=== PATIENT | male | born 1995 | race Two or more races ===

== ENCOUNTER 2020-06-20 17:03 | Emergency (ER) | payer MEDICAID, OTHER ==
[~2020-06-20] VITALS: Ht 180.3 cm; Wt 91.1 kg
[2020-06-20 17:36] LABS: MEAN CORPUSCULAR HEMOGLOBIN 30.5 pg (27.5-34.5); MEAN CORPUSCULAR HGB CONC 35.2 g/dL (33.2-36.2); MEAN PLATELET VOLUME 7.6 fL (7.4-10.4); PLATELET COUNT 196 x10^3/uL (130-400); RED BLOOD COUNT 5.02 x10^6/uL (4.38-5.82); RED CELL DISTRIBUTION WIDTH 13.5 % (9.4-14.8)
[2020-06-20 17:45] LABS: ALANINE AMINOTRANSFERASE 43 U/L (12-78); ALBUMIN 4.1 g/dL (3.4-5.0); ANION GAP 4 mmol/L (5-15); CALCIUM 8.8 mg/dL (8.5-10.1); CHLORIDE 109 mmol/L (98-107); CREATININE 0.88 mg/dL (0.7-1.3)
[2020-06-20 17:47] LABS: ALKALINE PHOSPHATASE 53 U/L (45-117); BILIRUBIN,TOTAL 1.1 mg/dL (0.2-1.0); TOTAL PROTEIN 7.6 g/dL (6.4-8.2)
[2020-06-20 17:56] LABS: MD YES
[2020-06-20 18:04] LABS: SEG#(MANUAL) 0.75 x10^3/uL (1.8-6.8); SEGS% (MANUAL) 34 % (42-75)
[2020-06-20 18:05] LABS: <PLATELET ESTIMATE> ADEQUATE; <PLT MORPHOLOGY> NORMAL PLT MORPH; <RBC MORPHOLOGY> NORMAL; EOS#(MANUAL) 0.11 x10^3/uL (0.0-0.4); EOS% (MANUAL) 5 % (1-7); LYMPH#(MANUAL) 0.97 x10^3/uL (1-3.4); LYMPHS% (MANUAL) 44 % (22-44); MONOS#(MANUAL) 0.33 x10^3/uL (0.3-2.7); MONOS% (MANUAL) 15 % (2-9); REACTIVE LYMPHS # (MANUAL) 0.04 x10^3/uL (0-0); REACTIVE LYMPHS % (MANUAL) 2 % (0-0)
--- NOTE | 2020-06-20 18:35 | NUR ---
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
--- NOTE | 2020-06-20 19:10 | NUR ---
report from Tonia BARRETT
[2020-06-20 19:53] VITALS: BP 129/72
--- NOTE | 2020-06-20 19:56 | NUR ---
PT REC'VD DISCHARGE INSTRUCTIONS AND EDUCATION. PT HAD NO FURTHER QUESTIONS. PT AMBULATED TO DC AREA, STEADY GAIT.
== END 2020-06-20 19:58 | disposition home or self-care (01) ==
LOC: ED 17:33
DX: D70.9 Neutropenia, unspecified (principal); R13.14 Dysphagia, pharyngoesophageal phase; R42 Dizziness and giddiness
CPT/HCPCS: 36415; 74220; 80053; 85025; 93005; 99285